=== PATIENT | male | born 1995 | race American Indian/Alaskan Native ===

== ENCOUNTER 2021-03-30 12:12 | Emergency (ER) | payer SELFPAY ==
[2021-03-30 12:21] VITALS: BP 108/61
[2021-03-30] MEDS ORDERED: LIDOCAINE-MPF (1%) 10 MG/1 ML VIAL 5 ML INFILTRATI ONE (13:53)
--- NOTE | 2021-03-30 13:57 | Emergency Department Report ---
- General Chief complaint: Skin/Abscess/Foreign Body Stated complaint: MEDICAL Source: patient Mode of arrival: Ambulatory Limitations: No Limitations - History of Present Illness Initial comments: The patient was evaluated in the emergency department for symptoms described in the history of present illness. He/she was evaluated in the context of the global COVID-19 pandemic, which necessitated consideration that the patient might be at risk for infection with the virus that causes COVID-19. Institutional protocols and algorithms that pertain to the evaluation of patients at risk for COVID-19 are in a state of rapid change based on information released by regulatory bodies including the CDC and federal and state organizations. These policies and algorithms were followed during the patient's care in the emergency department. Please note that these policies, procedures and recommendations changed on a rapid basis. 25-year-old -Malag[place] male presents to the foreign swelling on his t ailbone that noticed yesterday that is painful. Patient states is worse with sitting down and better with a hot shower. Patient states he thinks in the remote past that he had a history of a abscess before. Patient denies any drainage no fever no chills. MD complaint: abscess/boil Onset/Timin -: days(s) Location: buttocks Severity: moderate Severity scale (0 -10): 7 Quality: stabbing, sharp Consistency: constant Improves with: none Worsens with: palpation Context: none Treatments Prior to Arrival: none - Related Data Previous Rx's Medication Instructions Recorded Last Taken Type cephALEXin [Keflex] 250 mg PO Q6HR 10 Days #40 capsule 03/30/21 Unknown Rx Allergies Allergy/AdvReac Type Severity Reaction Status Date / Time No Known Allergies Allergy Verified 03/30/21 12:21 Abscess Boil HPI - HPI Chief Complaint: Skin/Abscess/Foreign Body Stated Complaint: MEDICAL Home Medications: Previous Rx's Medication Instructions Recorded Last Taken Type cephALEXin [Keflex] 250 mg PO Q6HR 10 Days #40 capsule 03/30/21 Unknown Rx Allergies/Adverse Reactions: Allergies Allergy/AdvReac Type Severity Reaction Status Date / Time No Known Allergies Allergy Verified 03/30/21 12:21 ED Review of Systems ROS: Stated complaint: MEDICAL Other details as noted in HPI Comment: All other systems reviewed and negative ED Past Medical Hx - Medications Home Medications: Home Medications Medication Instructions Recorded Confirmed Last Taken Type cephALEXin [Keflex] 250 mg PO Q6HR 10 Days #40 capsule 03/30/21 Unknown Rx ED Physical Exam - General Limitations: No Limitations General appearance: alert, in no apparent distress - Head Head exam: Present: atraumatic, normocephalic - Eye Eye exam: Present: normal appearance - ENT ENT exam: Present: mucous membranes moist - Neck Neck exam: Present: full ROM - Respiratory Respiratory exam: Absent: respiratory distress, accessory muscle use - Cardiovascular Cardiovascular Exam: Present: regular rate - Back Exam Back exam: Present: normal inspection - Neurological Exam Neurological exam: Present: alert, oriented X3 - Psychiatric Psychiatric exam: Present: normal affect, normal mood - Expanded Skin Exam Expanded Type of lesion: Present: abscess Distribution of rash: genitals (Left buttocks near the perineum) Description of rash: Present: tenderness, fluctuant ED Course Vital Signs 03/30/21 12:19 Temperature 98.6 F Pulse Rate 62 Respiratory 16 Rate Blood Pressure 108/61 [Left] O2 Sat by Pulse 98 Oximetry - I & D Left Buttocks Type of Procedure: Simple Blade Size: 11 I & D Procedure: betadine prep, sterile drapes applied, sterile dressing applied ED Medical Decision Making - Medical Decision Making 25-year-old -Malagasy male presents to the foreign swelling on his tailbone that noticed yesterday that is painful. Patient states is worse with sitting down and better with a hot shower. Patient states he thinks in the remote past that he had a history of a abscess before. Patient denies any drainage no fever no chills. Incision and drain was performed. Patient be placed on Keflex 4 times daily for 7 days. Critical care attestation.: If time is entered above; I have spent that time in minutes in the direct care of this critically ill patient, excluding procedure time. ED Disposition Clinical Impression: Abscess of buttock, left Disposition: 01 HOME / SELF CARE / HOMELESS Is pt being admited?: No Does the pt Need Aspirin: No Condition: Stable Instructions: Incision and Drainage, Care After Additional Instructions: Complete antibiotics as prescribed pain medication as needed. Keep area clean and dry. Prescriptions: cephALEXin [Keflex] 250 mg PO Q6HR 10 Days #40 capsule Referrals: [facility] [Provider Group] - 3-5 Days Forms: Work/School Release Form(ED) Time of Disposition: 14:40
== END 2021-03-30 15:30 | disposition home or self-care (01) ==
LOC: ED 12:12
DX: L02.31 Cutaneous abscess of buttock (principal)
CPT/HCPCS: 10060; 99281; J3490